=== PATIENT | male | born 2000 | race Caucasian/White ===

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

== ENCOUNTER 2023-07-02 11:26 | Emergency (ER) | payer OTHER, SELFPAY ==
[2023-07-02 11:27] VITALS: BP 138/91; PULSE 63; RESP 19; TEMP 35.3; O2SAT 100; BMI 25.9
== END 2023-07-02 12:10 | disposition left against medical advice (07) ==
LOC: ED 12:14
PROVIDERS: PCP Pediatrics
DX: Z48.00 Encounter for change or removal of nonsurgical wound dressing (principal)